=== PATIENT | female | born 1990 | race Caucasian/White ===

== ENCOUNTER 2024-11-25 07:52 | Inpatient (IN) ==
--- NOTE | 2024-11-25 08:50 | History & Physical Report ---
Date of Service November 25, 2024 Assessment & Plan (1) Encounter for induction of labor: (2) Hyperthyroidism affecting : (3) SHARLENE positive: Plan This is a 34 y/o currently at 40w 2d with an JOLEEN 11/23/24 as determined by LMP who is here for induction of labor. Her was complicated by hyperthyroidism and SHARLENE+. Dyer bulb 35cc sterile water - placed 11/24/24 Pitocin ordered AROM when indicated Continue FHT monitoring, category 1 Epidural if/when needed CBC pending IV fluids Admission and Anticipated Discharge Date Admission Date: November 25, 2024 History of Present Illness Chief Complaint: induction of labor Primary Care Provider: NO PCP Sharlene Zepeda is a 34 y/o F currently at 40w 2d with an EDD11/23/24 as determined by LMP who is here for induction of labor. Her was complicated by hyperthyroidism and SHARLENE+. (+) contractions; (+) movement; (-) fluid loss; (-) bloody show External FHT and external uterine monitors used; Category 1 tracing; moderate variability. Had had regular appointments with OB. OB Labs: Blood Type AB Positive 04/24/24 Antibody Screen NEGATIVE 04/24/24 Hgb 11.7 g/dl (12.0-16.0) L 09/01/24 Hct 34.0 % (37.0-47.0) L 09/01/24 MCV 87.6 fL (80.0-100.0) 04/24/24 Plt Count 292 K/uL (130-400) 04/24/24 Rubella IgG Antibody Immune (Immune) 04/24/24 Treponema pallidum Ab Negative (Negative) 09/01/24 Hep Bs Antigen Negative (Negative) 04/24/24 Hepatitis C Antibody Negative (Negative) 04/24/24 HIV 1&2 Ab/P24 Ag 4thGn Negative (Negative) 04/24/24 Glucose 1 Hr 50 gm 143 mg/dl (70-130) H 09/01/24 Maternal Serum AFP 43.4 ng/mL 06/08/24 OB Optional Labs: Chlamydia trachomatis RNA Not Detected (NotDetected) 04/24/24 Neisseria gonorrhoeae RNA Not Detected (NotDetected) 04/24/24 Thyroid Stimulating Hormone (TSH) 0.206 uIu/ml (0.300-4.500) L 09/17/24 Alpha Fetoprotein Triple Screen SEE NOTE 06/08/24 cfdna-low risk--mln Horizon 14-negative--mln afp neg--akh Allergies Allergy/AdvReac Type Severity Reaction Status Date / Time No Known Allergies Allergy narcs: N/V Verified 11/25/24 08:20 sleepiness, Steroids: hyperactivity Home Medications Medication Instructions Recorded Confirmed Type 21-iron fu-folic acid 1 tab PO DAILY 10/31/23 11/25/24 History [ Complete] levothyroxine 50 mcg tablet 50 mcg PO DAILY #90 tabs 09/21/24 11/25/24 Rx Patient History Medical History (Updated 11/25/24 @ 08:59 by Dodie Stone DO) Hypothyroidism SAB (spontaneous ) Positive SHARLENE (antinuclear antibody) Abnormal Pap smear of cervix 2015 ASCUS, HPV negative Hyperthyroidism History of chicken pox Surgical History H/O blepharoplasty S/P MCL repair S/P ACL repair H/O wisdom tooth extraction Family History Grandfather (Maternal) Prostate cancer Denies family history of Ovarian cancer Breast cancer Colorectal cancer Social History Smoking Status: Never smoker Do You Dip or Chew Tobacco: No; Hx Alcohol Use: No Hx Substance Use: No Preferred Language: Georgian Communication Ability: Effective 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 current occupational status: employed current occupation: Warehouse Inventory Clerk- [employer] Feels Safe at Home: Yes Safety Concerns: Feels Safe At This Time Review of Systems Denies fever, chills, sweats Denies shortness of breath, difficulty breathing, chest pain, palpitations, chest pressure. Denies breast pain. Denies dysuria. Denies headache or changes in vision. Physical Exam Physical Exam: General: Alert, oriented. No acute distress. Cardiac: Regular rate and rhythm, no murmurs/rubs/gallops. Respiratory: Clear to auscultation bilaterally a/p, no wheezes/rales/rhonchi. No increased work of breathing. Symmetrical chest rise. No respiratory distress. Abdomen: soft, gravid, normal to inspectiion Pelvic: Dilation 3 cm; Effacement 50; Station -[address] Wynn Lower Extremities: No lower extremity edema or swelling. No deep calf pain. Constitutional: WD/WN, vitals as above Genitourinary: OB Exam Abdomen: + vertex, + estimated weight (7-8 pounds) and + irregular contractions Manual OB Exam: + cervical dilation 3 cm and + cervical effacement OB Exam Monitor Tracing: + external FHT monitor used, + external uterine monitor used, + category I and + normal FHT variability Dyer balloon not delivered Results & Data Vital Signs (Past 12 Hours) Vital Signs Pulse BP 11/25/24 08:01 78 116/79 Supervising Physician Co-Signing Physician Notes Resident Physician Supervision Note: I interviewed and examined the patient. Discussed with Dr. Stone and agree with findings and plan as documented in the note. Any exceptions or clarifications are listed here: [None] Documented By: Wandy Singh MD, FACOG (2) Hyperthyroidism affecting Trimester: second trimester Qualified Code(s): O99.282 - Endocrine, nutritional and metabolic diseases complicating , second trimester; E05.90 - Thyrotoxicosis, unspecified without thyrotoxic crisis or storm
[2024-11-25] MEDS ORDERED: OXYTOCIN 30 UNITS/NSS 30 UNITS/500 ML BAG IV PRN (09:18)
[2024-11-25] MEDS ORDERED: LIDOCAINE 1% LOCAL 20 ML VIAL INFIL PRN (09:18)
[2024-11-25 09:45] LABS: Hematocrit (blood only) 38.9 % (37.0-47.0); Hemoglobin 13.9 g/dl (12.0-16.0); Mean Corpuscular Hemoglobin 32.9 pg (25.0-34.0); Mean Corpuscular Volume 92.0 fL (80.0-100.0); Platelet Count 203 K/uL (130-400); RDW Standard Deviation 44.3 fL (36.4-46.3); Red Blood Count 4.23 M/uL (4.20-5.40); White Blood Count 14.46 K/ul (4.8-10.8)
[2024-11-25] MEDS: LACTATED RINGER'S 1,000 ML IV PRN (10:02)
[2024-11-25] MEDS: OXYTOCIN 30 UNITS/NSS 30 UNITS/500 ML BAG IV PRN (10:05)
--- NOTE | 2024-11-25 15:42 | Labor Progress Brief Note ---
Date of Service November 25, 2024 Subjective tolerating contractions Assessment & Plan (1) Encounter for induction of labor: Plan will get epidural and then plan arom. fetus category one. Admission and Anticipated Discharge Date Admission Date: November 25, 2024 Physical Exam Physical Exam: gentle tug on roberts and removed cx--3-4/80/-2 toco--q2-4min, pit at 5 efm--120s with mod variability, accels to 150s, no decels Results & Data Vital Signs (Past 12 Hours) Vital Signs Temp Pulse Resp BP 11/25/24 15:09 80 11/25/24 15:09 125/79 11/25/24 14:03 66 11/25/24 14:03 119/75 11/25/24 13:06 65 11/25/24 13:06 114/68 11/25/24 12:04 68 11/25/24 12:04 107/64 11/25/24 11:05 71 11/25/24 11:05 122/78 11/25/24 10:05 73 11/25/24 10:05 112/72 11/25/24 08:25 78 18 116/79 11/25/24 08:01 78 116/79 11/25/24 08:00 18 11/25/24 08:00 36.7 C 18 Coding Level of Care Code None Diagnoses Encounter for induction of labor Z34.90
--- NOTE | 2024-11-25 15:56 | Anesthesiology Consultation ---
Date of Service November 25, 2024 Assessment & Plan ASA ASA2 Proposed Anesthesia Anesthesia Type: Spinal Risk / Benefits Reviewed With: PT / POA / Parent / Guardian, Accepts Plan and Informed Consent Obtained History Height/Weight Height: 5 ft 2 in Weight: 71.214 kg Allergies Allergy/AdvReac Type Severity Reaction Status Date / Time No Known Allergies Allergy narcs: N/V Verified 11/25/24 08:20 sleepiness, Steroids: hyperactivity Medications Home Medications Medication Instructions Recorded Confirmed Last Taken 21-iron fu-folic acid 1 tab PO DAILY 10/31/23 11/25/24 11/24/24 21:00 [ Complete] levothyroxine 50 mcg tablet 50 mcg PO DAILY #90 tabs 09/21/24 11/25/24 11/25/24 06:30 Active Medications Generic Name Dose Route Start Last Admin Trade Name Freq PRN Reason Stop Dose Admin Lactated Ringer's 1,000 mls @ 125 mls/hr 11/25/24 09:18 11/25/24 15:50 Lr IV 11/27/24 09:17 999 mls/hr .Q8H PRN Administration L&D Protocol Protocol Oxytocin 30 units in 500 mls @ 20 mls/hr 11/25/24 09:27 11/25/24 14:35 Pitocin 30 Units/Nss IV 11/27/24 09:26 1.2 units/hr .Q24H PRN 20 mls/hr Labor Induction/Augmentation Titration Protocol 1.2 UNITS/HR NPO Date Last Intake of Fluids: 11/25/24 Time Last Intake of Fluids: 00:00 Past Medical History Medical History Hypothyroidism SAB (spontaneous ) Positive SHARLENE (antinuclear antibody) Abnormal Pap smear of cervix 2015 ASCUS, HPV negative Hyperthyroidism History of chicken pox Exercise / Class Metabolic Activity II 4-5 Yardwork/Stairs/Walk up hill Past Family History Family History Grandfather (Maternal) Prostate cancer Denies family history of Ovarian cancer Breast cancer Colorectal cancer Past Surgical History Surgical History H/O blepharoplasty S/P MCL repair S/P ACL repair H/O wisdom tooth extraction Past Anesthesia History No Hx of Anesthesia Complications and No Family Hx of Anesthesia Complications History of PONV No Hx of PONV and No Hx of Motion Sickness Social History Smoking Status: Never smoker Do You Dip or Chew Tobacco: No Hx Alcohol Use: No Hx Substance Use: No substance use type: does not use Review of Systems denies fever/cough/ colds/ chest pain/ SOB/ COLLINS denies COLLINS Physical Exam Vital Signs Last Vital Signs Temp 36.7 C 11/25/24 08:00 Pulse 80 11/25/24 15:09 Resp 18 11/25/24 08:25 BP 125/79 11/25/24 15:09 ENMT Mouth: no TMJ abnormality and no dentition abnormality Thyromental Distance: > or= 3.5 Finger Breadths Mallampati Class: II Neck neck extension not limited Respiratory normal respiratory effort; no respiratory distress Auscultation: lungs clear to auscultation bilaterally Cardiovascular Rate/Rhythm: regular rate and regular rhythm Neurologic moves all extremities Psychiatric Orientation: alert and oriented x 3 Testing Laboratory Results 11/25/24 09:27
[2024-11-25] MEDS ORDERED: LIDOCAINE 2% MPF LOCAL 5 ML VIAL EPI PRN (15:58)
[2024-11-25] MEDS ORDERED: BUPIVACAINE 0.25% PF 30 ML VIAL EPI PRN (15:58)
[2024-11-25] MEDS ORDERED: fentANYL 2 MCG/ML BUPIVacaine 0.125%-NSS 100ML BAG EPI PRN (15:58)
[2024-11-25] MEDS ORDERED: ROPIVACAINE 0.5% PF 5 MG/ML 20 ML VIAL EPI PRN (15:58)
[2024-11-25] MEDS ORDERED: diphenhydrAMINE 50 MG/ML VIAL IV PRN (15:58)
[2024-11-25] MEDS ORDERED: ONDANSETRON INJ 2 MG/ML 2 ML VIAL IV PRN (15:58)
[2024-11-25] MEDS ORDERED: NALBUPHINE HCL INJ 10 MG/ML AMP IV PRN (15:58)
[2024-11-25] MEDS ORDERED: NALOXONE HCL 0.4 MG/1 ML VIAL/CARP IV PRN (15:58)
[2024-11-25] MEDS ORDERED: SODIUM CHLORIDE 0.9% PF INJ 10 ML VIAL EPI PRN (15:58)
[2024-11-25] MEDS ORDERED: NALOXONE HCL 1 MG in SODIUM CHLORIDE 0.9% 1,000 ML IV PRN (15:58)
[2024-11-25] MEDS: LIDOCAINE 2%/EPINEPHRINE 1:200,000 20 ML PF ONE (16:25)
[2024-11-25] MEDS: fentANYL 2 MCG/ML BUPIVacaine 0.125%-NSS 100ML BAG ONE (16:37)
[2024-11-25] MEDS: BUPIVACAINE 0.25% PF 30 ML VIAL ONE (17:02)
[2024-11-25] MEDS: SODIUM CHLORIDE 0.9% PF INJ 10 ML VIAL ONE (17:02)
[2024-11-25] MEDS: LIDOCAINE 2%/EPINEPHRINE 1:200,000 20 ML PF EPI STA (17:03)
[2024-11-25] MEDS: BUPIVACAINE 0.25% PF 30 ML VIAL EPI STA (17:03)
[2024-11-25] MEDS: SODIUM CHLORIDE 0.9% PF INJ 10 ML VIAL EPI STA (17:03)
--- NOTE | 2024-11-25 20:04 | Labor Progress Brief Note ---
Date of Service November 25, 2024 Subjective comfortable Assessment & Plan (1) Encounter for induction of labor: Plan iupc placed, evaluate for adequate contractions. fetus category one Admission and Anticipated Discharge Date Admission Date: November 25, 2024 Physical Exam Physical Exam: cx--5/100/-2 iupc placed toco--q2-4, pit at 20 efm--140s with mod variability, accels to 160s, no decels Results & Data Vital Signs (Past 12 Hours) Vital Signs Temp Pulse Resp BP Pulse Ox Pulse Ox O2 Del Method 11/25/24 20:00 97 11/25/24 20:00 74 11/25/24 19:55 96 11/25/24 19:55 76 11/25/24 19:50 95 11/25/24 19:50 79 11/25/24 19:45 97 11/25/24 19:45 74 11/25/24 19:43 75 11/25/24 19:43 104/64 11/25/24 19:40 98 11/25/24 19:40 75 11/25/24 19:35 97 11/25/24 19:35 71 11/25/24 19:30 98 11/25/24 19:30 81 11/25/24 19:27 74 11/25/24 19:27 112/77 11/25/24 19:25 98 11/25/24 19:25 75 11/25/24 19:20 97 11/25/24 19:20 78 11/25/24 19:15 97 11/25/24 19:15 79 11/25/24 19:13 97 11/25/24 19:12 74 11/25/24 19:12 112/77 11/25/24 19:10 97 11/25/24 19:10 69 11/25/24 19:05 Room Air 11/25/24 19:05 37.0 C 18 Room Air 11/25/24 19:05 18 11/25/24 19:05 37.0 C 18 11/25/24 19:05 96 11/25/24 19:05 75 11/25/24 19:00 98 11/25/24 19:00 79 11/25/24 18:55 98 11/25/24 18:55 75 11/25/24 18:50 98 11/25/24 18:50 76 11/25/24 18:45 98 11/25/24 18:45 74 11/25/24 18:43 75 11/25/24 18:43 115/73 11/25/24 18:40 97 11/25/24 18:40 73 11/25/24 18:35 97 11/25/24 18:35 77 11/25/24 18:30 98 11/25/24 18:30 76 11/25/24 18:28 77 11/25/24 18:28 117/70 11/25/24 18:25 36.9 C 11/25/24 18:25 99 11/25/24 18:25 78 11/25/24 18:20 99 11/25/24 18:20 74 11/25/24 18:15 98 11/25/24 18:15 81 11/25/24 18:12 81 11/25/24 18:12 114/64 11/25/24 18:10 97 11/25/24 18:10 81 11/25/24 18:05 98 11/25/24 18:05 79 11/25/24 18:00 99 11/25/24 18:00 86 11/25/24 17:57 71 11/25/24 17:57 107/68 11/25/24 17:55 98 11/25/24 17:55 79 11/25/24 17:50 99 11/25/24 17:50 79 11/25/24 17:45 98 11/25/24 17:45 75 11/25/24 17:42 74 11/25/24 17:42 108/74 11/25/24 17:40 99 11/25/24 17:40 78 11/25/24 17:35 98 11/25/24 17:35 76 11/25/24 17:30 18 11/25/24 17:30 36.9 C 18 11/25/24 17:30 99 11/25/24 17:30 79 11/25/24 17:29 77 11/25/24 17:29 116/85 11/25/24 17:25 99 11/25/24 17:25 81 11/25/24 17:20 96 11/25/24 17:20 87 11/25/24 17:15 98 11/25/24 17:15 73 11/25/24 17:12 85 11/25/24 17:12 104/61 11/25/24 17:10 99 11/25/24 17:10 79 11/25/24 17:05 99 11/25/24 17:05 80 11/25/24 17:00 98 11/25/24 17:00 83 11/25/24 16:57 75 11/25/24 16:57 110/64 11/25/24 16:55 98 11/25/24 16:55 77 11/25/24 16:50 98 11/25/24 16:50 82 11/25/24 16:45 98 11/25/24 16:45 99 H 11/25/24 16:41 82 11/25/24 16:41 110/66 11/25/24 16:40 98 11/25/24 16:40 82 11/25/24 16:38 81 11/25/24 16:38 109/62 11/25/24 16:36 84 11/25/24 16:36 115/67 11/25/24 16:35 98 11/25/24 16:35 93 H 11/25/24 16:32 84 11/25/24 16:32 107/57 L 11/25/24 16:30 98 11/25/24 16:30 85 11/25/24 16:29 82 11/25/24 16:29 118/57 L 11/25/24 16:26 71 11/25/24 16:26 117/78 11/25/24 16:25 98 11/25/24 16:25 70 11/25/24 16:20 99 11/25/24 16:20 75 11/25/24 16:15 100 11/25/24 16:15 79 11/25/24 16:10 99 11/25/24 16:10 79 11/25/24 16:04 18 11/25/24 16:04 37.2 C 18 11/25/24 15:09 80 11/25/24 15:09 125/79 11/25/24 14:03 66 11/25/24 14:03 119/75 11/25/24 13:06 65 11/25/24 13:06 114/68 11/25/24 12:04 68 11/25/24 12:04 107/64 11/25/24 11:05 71 11/25/24 11:05 122/78 11/25/24 10:05 73 11/25/24 10:05 112/72 11/25/24 08:25 78 18 116/79 O2 Del Method 11/25/24 20:00 11/25/24 20:00 11/25/24 19:55 11/25/24 19:55 11/25/24 19:50 11/25/24 19:50 11/25/24 19:45 11/25/24 19:45 11/25/24 19:43 11/25/24 19:43 11/25/24 19:40 11/25/24 19:40 11/25/24 19:35 11/25/24 19:35 11/25/24 19:30 11/25/24 19:30 11/25/24 19:27 11/25/24 19:27 11/25/24 19:25 11/25/24 19:25 11/25/24 19:20 11/25/24 19:20 11/25/24 19:15 11/25/24 19:15 11/25/24 19:13 Room Air 11/25/24 19:12 11/25/24 19:12 11/25/24 19:10 11/25/24 19:10 11/25/24 19:05 11/25/24 19:05 11/25/24 19:05 11/25/24 19:05 11/25/24 19:05 11/25/24 19:05 11/25/24 19:00 11/25/24 19:00 11/25/24 18:55 11/25/24 18:55 11/25/24 18:50 11/25/24 18:50 11/25/24 18:45 11/25/24 18:45 11/25/24 18:43 11/25/24 18:43 11/25/24 18:40 11/25/24 18:40 11/25/24 18:35 11/25/24 18:35 11/25/24 18:30 11/25/24 18:30 11/25/24 18:28 11/25/24 18:28 11/25/24 18:25 11/25/24 18:25 11/25/24 18:25 11/25/24 18:20 11/25/24 18:20 11/25/24 18:15 11/25/24 18:15 11/25/24 18:12 11/25/24 18:12 11/25/24 18:10 11/25/24 18:10 11/25/24 18:05 11/25/24 18:05 11/25/24 18:00 11/25/24 18:00 11/25/24 17:57 11/25/24 17:57 11/25/24 17:55 11/25/24 17:55 11/25/24 17:50 11/25/24 17:50 11/25/24 17:45 11/25/24 17:45 11/25/24 17:42 11/25/24 17:42 11/25/24 17:40 11/25/24 17:40 11/25/24 17:35 11/25/24 17:35 11/25/24 17:30 11/25/24 17:30 11/25/24 17:30 11/25/24 17:30 11/25/24 17:29 11/25/24 17:29 11/25/24 17:25 11/25/24 17:25 11/25/24 17:20 11/25/24 17:20 11/25/24 17:15 11/25/24 17:15 11/25/24 17:12 11/25/24 17:12 11/25/24 17:10 11/25/24 17:10 11/25/24 17:05 11/25/24 17:05 11/25/24 17:00 11/25/24 17:00 11/25/24 16:57 11/25/24 16:57 11/25/24 16:55 11/25/24 16:55 11/25/24 16:50 11/25/24 16:50 11/25/24 16:45 11/25/24 16:45 11/25/24 16:41 11/25/24 16:41 11/25/24 16:40 11/25/24 16:40 11/25/24 16:38 11/25/24 16:38 11/25/24 16:36 11/25/24 16:36 11/25/24 16:35 11/25/24 16:35 11/25/24 16:32 11/25/24 16:32 11/25/24 16:30 11/25/24 16:30 11/25/24 16:29 11/25/24 16:29 11/25/24 16:26 11/25/24 16:26 11/25/24 16:25 11/25/24 16:25 11/25/24 16:20 11/25/24 16:20 11/25/24 16:15 11/25/24 16:15 11/25/24 16:10 11/25/24 16:10 11/25/24 16:04 11/25/24 16:04 11/25/24 15:09 11/25/24 15:09 11/25/24 14:03 11/25/24 14:03 11/25/24 13:06 11/25/24 13:06 11/25/24 12:04 11/25/24 12:04 11/25/24 11:05 11/25/24 11:05 11/25/24 10:05 11/25/24 10:05 11/25/24 08:25 Coding Level of Care Code None Diagnoses Encounter for induction of labor Z34.90
--- NOTE | 2024-11-25 23:28 | Labor Progress Brief Note ---
Date of Service November 25, 2024 Subjective notes lots of pressure with contractions. Assessment & Plan (1) Encounter for induction of labor: Plan excellent progress, fetus category one. wait for lip to reduce and then can begin second stage. Admission and Anticipated Discharge Date Admission Date: November 25, 2024 Physical Exam Physical Exam: cx--ant lip/0 toco--q1-2min, pit at 26 efm--150s with mod variability, accels presents, scalp stim to 160s Results & Data Vital Signs (Past 12 Hours) Vital Signs Temp Pulse Resp BP Pulse Ox Pulse Ox O2 Del Method 11/25/24 23:20 99 11/25/24 23:20 81 11/25/24 23:15 98 11/25/24 23:15 82 11/25/24 23:12 83 11/25/24 23:12 122/71 11/25/24 23:10 100 11/25/24 23:10 85 11/25/24 23:05 99 11/25/24 23:05 79 11/25/24 23:00 18 11/25/24 23:00 18 11/25/24 23:00 99 11/25/24 23:00 79 11/25/24 22:58 93 11/25/24 22:58 80 11/25/24 22:57 84 11/25/24 22:57 120/67 11/25/24 22:55 99 11/25/24 22:55 90 11/25/24 22:50 98 11/25/24 22:50 89 11/25/24 22:45 98 11/25/24 22:45 88 11/25/24 22:43 96 H 11/25/24 22:43 115/76 11/25/24 22:43 90 11/25/24 22:43 91 H 11/25/24 22:40 99 11/25/24 22:40 88 11/25/24 22:35 99 11/25/24 22:35 81 11/25/24 22:30 99 11/25/24 22:30 80 11/25/24 22:27 71 11/25/24 22:27 102/57 L 11/25/24 22:25 99 11/25/24 22:25 70 11/25/24 22:20 96 11/25/24 22:20 78 11/25/24 22:15 96 11/25/24 22:15 79 11/25/24 22:12 73 11/25/24 22:12 103/56 L 11/25/24 22:10 98 11/25/24 22:10 78 11/25/24 22:05 95 11/25/24 22:05 77 11/25/24 22:00 18 11/25/24 22:00 18 11/25/24 22:00 95 11/25/24 22:00 78 11/25/24 21:57 78 11/25/24 21:57 98/56 L 11/25/24 21:55 95 11/25/24 21:55 77 11/25/24 21:50 95 11/25/24 21:50 78 11/25/24 21:45 96 11/25/24 21:45 78 11/25/24 21:42 78 11/25/24 21:42 101/62 11/25/24 21:40 96 11/25/24 21:40 74 11/25/24 21:38 93 11/25/24 21:38 79 11/25/24 21:35 98 11/25/24 21:35 92 H 11/25/24 21:30 100 11/25/24 21:30 75 11/25/24 21:27 74 11/25/24 21:27 112/75 11/25/24 21:25 98 11/25/24 21:25 72 11/25/24 21:20 98 11/25/24 21:20 81 11/25/24 21:15 36.9 C 11/25/24 21:15 97 11/25/24 21:15 82 11/25/24 21:12 78 11/25/24 21:12 110/75 11/25/24 21:10 98 11/25/24 21:10 79 11/25/24 21:05 96 11/25/24 21:05 96 H 11/25/24 21:00 18 11/25/24 21:00 18 11/25/24 21:00 93 11/25/24 21:00 82 11/25/24 20:57 73 11/25/24 20:57 118/74 11/25/24 20:55 97 11/25/24 20:55 74 11/25/24 20:50 96 11/25/24 20:50 73 11/25/24 20:45 98 11/25/24 20:45 73 11/25/24 20:42 83 11/25/24 20:42 119/74 11/25/24 20:40 98 11/25/24 20:40 74 11/25/24 20:35 98 11/25/24 20:35 84 11/25/24 20:30 98 11/25/24 20:30 75 11/25/24 20:27 74 11/25/24 20:27 112/70 11/25/24 20:25 97 11/25/24 20:25 71 11/25/24 20:20 97 11/25/24 20:20 71 11/25/24 20:15 98 11/25/24 20:15 85 11/25/24 20:12 72 11/25/24 20:12 121/72 11/25/24 20:10 97 11/25/24 20:10 74 11/25/24 20:05 97 11/25/24 20:05 72 11/25/24 20:00 18 11/25/24 20:00 18 11/25/24 20:00 97 11/25/24 20:00 74 11/25/24 19:55 96 11/25/24 19:55 76 11/25/24 19:50 95 11/25/24 19:50 79 11/25/24 19:45 97 11/25/24 19:45 74 11/25/24 19:43 75 11/25/24 19:43 104/64 11/25/24 19:40 98 11/25/24 19:40 75 11/25/24 19:35 97 11/25/24 19:35 71 11/25/24 19:30 98 11/25/24 19:30 81 11/25/24 19:27 74 11/25/24 19:27 112/77 11/25/24 19:25 98 11/25/24 19:25 75 11/25/24 19:20 97 11/25/24 19:20 78 11/25/24 19:15 97 11/25/24 19:15 79 11/25/24 19:13 97 11/25/24 19:12 74 11/25/24 19:12 112/77 11/25/24 19:10 97 11/25/24 19:10 69 11/25/24 19:05 Room Air 11/25/24 19:05 37.0 C 18 Room Air 11/25/24 19:05 18 11/25/24 19:05 37.0 C 18 11/25/24 19:05 96 11/25/24 19:05 75 11/25/24 19:00 98 11/25/24 19:00 79 11/25/24 18:55 98 11/25/24 18:55 75 11/25/24 18:50 98 11/25/24 18:50 76 11/25/24 18:45 98 11/25/24 18:45 74 11/25/24 18:43 75 11/25/24 18:43 115/73 11/25/24 18:40 97 11/25/24 18:40 73 11/25/24 18:35 97 11/25/24 18:35 77 11/25/24 18:30 98 11/25/24 18:30 76 11/25/24 18:28 77 11/25/24 18:28 117/70 11/25/24 18:25 36.9 C 11/25/24 18:25 99 11/25/24 18:25 78 11/25/24 18:20 99 11/25/24 18:20 74 11/25/24 18:15 98 11/25/24 18:15 81 11/25/24 18:12 81 11/25/24 18:12 114/64 11/25/24 18:10 97 11/25/24 18:10 81 11/25/24 18:05 98 11/25/24 18:05 79 11/25/24 18:00 99 11/25/24 18:00 86 11/25/24 17:57 71 11/25/24 17:57 107/68 11/25/24 17:55 98 11/25/24 17:55 79 11/25/24 17:50 99 11/25/24 17:50 79 11/25/24 17:45 98 11/25/24 17:45 75 11/25/24 17:42 74 11/25/24 17:42 108/74 11/25/24 17:40 99 11/25/24 17:40 78 11/25/24 17:35 98 11/25/24 17:35 76 11/25/24 17:30 18 11/25/24 17:30 36.9 C 18 11/25/24 17:30 99 11/25/24 17:30 79 11/25/24 17:29 77 11/25/24 17:29 116/85 11/25/24 17:25 99 11/25/24 17:25 81 11/25/24 17:20 96 11/25/24 17:20 87 11/25/24 17:15 98 11/25/24 17:15 73 11/25/24 17:12 85 11/25/24 17:12 104/61 11/25/24 17:10 99 11/25/24 17:10 79 11/25/24 17:05 99 11/25/24 17:05 80 11/25/24 17:00 98 11/25/24 17:00 83 11/25/24 16:57 75 11/25/24 16:57 110/64 11/25/24 16:55 98 11/25/24 16:55 77 11/25/24 16:50 98 11/25/24 16:50 82 11/25/24 16:45 98 11/25/24 16:45 99 H 11/25/24 16:41 82 11/25/24 16:41 110/66 11/25/24 16:40 98 11/25/24 16:40 82 11/25/24 16:38 81 11/25/24 16:38 109/62 11/25/24 16:36 84 11/25/24 16:36 115/67 11/25/24 16:35 98 11/25/24 16:35 93 H 11/25/24 16:32 84 11/25/24 16:32 107/57 L 11/25/24 16:30 98 11/25/24 16:30 85 11/25/24 16:29 82 11/25/24 16:29 118/57 L 11/25/24 16:26 71 11/25/24 16:26 117/78 11/25/24 16:25 98 11/25/24 16:25 70 11/25/24 16:20 99 11/25/24 16:20 75 11/25/24 16:15 100 11/25/24 16:15 79 11/25/24 16:10 99 11/25/24 16:10 79 11/25/24 16:04 18 11/25/24 16:04 37.2 C 18 11/25/24 15:09 80 11/25/24 15:09 125/79 11/25/24 14:03 66 11/25/24 14:03 119/75 11/25/24 13:06 65 11/25/24 13:06 114/68 11/25/24 12:04 68 11/25/24 12:04 107/64 O2 Del Method 11/25/24 23:20 11/25/24 23:20 11/25/24 23:15 11/25/24 23:15 11/25/24 23:12 11/25/24 23:12 11/25/24 23:10 11/25/24 23:10 11/25/24 23:05 11/25/24 23:05 11/25/24 23:00 11/25/24 23:00 11/25/24 23:00 11/25/24 23:00 11/25/24 22:58 11/25/24 22:58 11/25/24 22:57 11/25/24 22:57 11/25/24 22:55 11/25/24 22:55 11/25/24 22:50 11/25/24 22:50 11/25/24 22:45 11/25/24 22:45 11/25/24 22:43 11/25/24 22:43 11/25/24 22:43 11/25/24 22:43 11/25/24 22:40 11/25/24 22:40 11/25/24 22:35 11/25/24 22:35 11/25/24 22:30 11/25/24 22:30 11/25/24 22:27 11/25/24 22:27 11/25/24 22:25 11/25/24 22:25 11/25/24 22:20 11/25/24 22:20 11/25/24 22:15 11/25/24 22:15 11/25/24 22:12 11/25/24 22:12 11/25/24 22:10 11/25/24 22:10 11/25/24 22:05 11/25/24 22:05 11/25/24 22:00 11/25/24 22:00 11/25/24 22:00 11/25/24 22:00 11/25/24 21:57 11/25/24 21:57 11/25/24 21:55 11/25/24 21:55 11/25/24 21:50 11/25/24 21:50 11/25/24 21:45 11/25/24 21:45 11/25/24 21:42 11/25/24 21:42 11/25/24 21:40 11/25/24 21:40 11/25/24 21:38 11/25/24 21:38 11/25/24 21:35 11/25/24 21:35 11/25/24 21:30 11/25/24 21:30 11/25/24 21:27 11/25/24 21:27 11/25/24 21:25 11/25/24 21:25 11/25/24 21:20 11/25/24 21:20 11/25/24 21:15 11/25/24 21:15 11/25/24 21:15 11/25/24 21:12 11/25/24 21:12 11/25/24 21:10 11/25/24 21:10 11/25/24 21:05 11/25/24 21:05 11/25/24 21:00 11/25/24 21:00 11/25/24 21:00 11/25/24 21:00 11/25/24 20:57 11/25/24 20:57 11/25/24 20:55 11/25/24 20:55 11/25/24 20:50 11/25/24 20:50 11/25/24 20:45 11/25/24 20:45 11/25/24 20:42 11/25/24 20:42 11/25/24 20:40 11/25/24 20:40 11/25/24 20:35 11/25/24 20:35 11/25/24 20:30 11/25/24 20:30 11/25/24 20:27 11/25/24 20:27 11/25/24 20:25 11/25/24 20:25 11/25/24 20:20 11/25/24 20:20 11/25/24 20:15 11/25/24 20:15 11/25/24 20:12 11/25/24 20:12 11/25/24 20:10 11/25/24 20:10 11/25/24 20:05 11/25/24 20:05 11/25/24 20:00 11/25/24 20:00 11/25/24 20:00 11/25/24 20:00 11/25/24 19:55 11/25/24 19:55 11/25/24 19:50 11/25/24 19:50 11/25/24 19:45 11/25/24 19:45 11/25/24 19:43 11/25/24 19:43 11/25/24 19:40 11/25/24 19:40 11/25/24 19:35 11/25/24 19:35 11/25/24 19:30 11/25/24 19:30 11/25/24 19:27 11/25/24 19:27 11/25/24 19:25 11/25/24 19:25 11/25/24 19:20 11/25/24 19:20 11/25/24 19:15 11/25/24 19:15 11/25/24 19:13 Room Air 11/25/24 19:12 11/25/24 19:12 11/25/24 19:10 11/25/24 19:10 11/25/24 19:05 11/25/24 19:05 11/25/24 19:05 11/25/24 19:05 11/25/24 19:05 11/25/24 19:05 11/25/24 19:00 11/25/24 19:00 11/25/24 18:55 11/25/24 18:55 11/25/24 18:50 11/25/24 18:50 11/25/24 18:45 11/25/24 18:45 11/25/24 18:43 11/25/24 18:43 11/25/24 18:40 11/25/24 18:40 11/25/24 18:35 11/25/24 18:35 11/25/24 18:30 11/25/24 18:30 11/25/24 18:28 11/25/24 18:28 11/25/24 18:25 11/25/24 18:25 11/25/24 18:25 11/25/24 18:20 11/25/24 18:20 11/25/24 18:15 11/25/24 18:15 11/25/24 18:12 11/25/24 18:12 11/25/24 18:10 11/25/24 18:10 11/25/24 18:05 11/25/24 18:05 11/25/24 18:00 11/25/24 18:00 11/25/24 17:57 11/25/24 17:57 11/25/24 17:55 11/25/24 17:55 11/25/24 17:50 11/25/24 17:50 11/25/24 17:45 11/25/24 17:45 11/25/24 17:42 11/25/24 17:42 11/25/24 17:40 11/25/24 17:40 11/25/24 17:35 11/25/24 17:35 11/25/24 17:30 11/25/24 17:30 11/25/24 17:30 11/25/24 17:30 11/25/24 17:29 11/25/24 17:29 11/25/24 17:25 11/25/24 17:25 11/25/24 17:20 11/25/24 17:20 11/25/24 17:15 11/25/24 17:15 11/25/24 17:12 11/25/24 17:12 11/25/24 17:10 11/25/24 17:10 11/25/24 17:05 11/25/24 17:05 11/25/24 17:00 11/25/24 17:00 11/25/24 16:57 11/25/24 16:57 11/25/24 16:55 11/25/24 16:55 11/25/24 16:50 11/25/24 16:50 11/25/24 16:45 11/25/24 16:45 11/25/24 16:41 11/25/24 16:41 11/25/24 16:40 11/25/24 16:40 11/25/24 16:38 11/25/24 16:38 11/25/24 16:36 11/25/24 16:36 11/25/24 16:35 11/25/24 16:35 11/25/24 16:32 11/25/24 16:32 11/25/24 16:30 11/25/24 16:30 11/25/24 16:29 11/25/24 16:29 11/25/24 16:26 11/25/24 16:26 11/25/24 16:25 11/25/24 16:25 11/25/24 16:20 11/25/24 16:20 11/25/24 16:15 11/25/24 16:15 11/25/24 16:10 11/25/24 16:10 11/25/24 16:04 11/25/24 16:04 11/25/24 15:09 11/25/24 15:09 11/25/24 14:03 11/25/24 14:03 11/25/24 13:06 11/25/24 13:06 11/25/24 12:04 11/25/24 12:04 Coding Level of Care Code None Diagnoses Encounter for induction of labor Z34.90
[2024-11-26] MEDS: fentANYL 2 MCG/ML BUPIVacaine 0.125%-NSS 100ML BAG ONE (00:27)
[2024-11-26] MEDS: BUPIVACAINE 0.25% PF 30 ML VIAL ONE (00:28)
[2024-11-26] MEDS: LIDOCAINE 2%/EPINEPHRINE 1:200,000 20 ML PF ONE (00:28)
--- NOTE | 2024-11-26 00:38 | Anesthesia Procedure Note ---
Date of Service November 26, 2024 Anesthesia Epidural Re-Dose Vital Signs Temp Pulse Resp BP Pulse Ox O2 Del Method 37.2 C 76 18 105/72 100 Room Air 11/25/24 23:51 11/26/24 00:35 11/26/24 00:00 11/26/24 00:30 11/26/24 00:35 11/25/24 19:13 Notes Pain Intensity: 10 Dilatation (cm): 9.5 Effacement (%): 100 Called by nursing to evaluate epidural because the connector piece had detached. the nurse had covered exposed tubing with a tegaderm. the tubing was cut two inches by ma and cleaned with alcohol. the connector was reconnected and she was redosed.. The epidural was re-dosed with the following medications (all medications via epidural route) after negative aspiration of the epidural catheter for CSF/HEME. 2ml 2% lidocaine with epi, 2mL bupivicaine 0.25% and 100 mcg fetanyl via epidural After Epidural Re-Dose Mental Status: alert / awake / arousable Pain: improving with treatment Airway Patency, RR, SpO2: stable & adequate BP & HR: stable & adequate
--- NOTE | 2024-11-26 02:16 | Labor Progress Brief Note ---
Date of Service November 26, 2024 Subjective pushing with good effort for about 45 min Assessment & Plan (1) Encounter for induction of labor: Plan good effort, moving baby, fetus tachy but reassuring, anticipate . Admission and Anticipated Discharge Date Admission Date: November 25, 2024 Physical Exam Physical Exam: c/c/+3 toco--q1-2min, pit at 26 efm--170s with mod variability, variables with contractions, spon accels Results & Data Vital Signs (Past 12 Hours) Vital Signs Temp Pulse Resp BP Pulse Ox Pulse Ox O2 Del Method 11/26/24 02:12 97 11/26/24 02:12 121 H 11/26/24 02:12 93 H 117/55 L 11/26/24 02:06 83 98 11/26/24 02:01 121 H 96 11/26/24 01:57 92 H 126/58 L 11/26/24 01:56 116 H 96 11/26/24 01:51 90 98 11/26/24 01:47 87 88 L 11/26/24 01:46 83 98 11/26/24 01:43 81 113/61 11/26/24 01:41 104 H 97 11/26/24 01:36 114 H 93 11/26/24 01:35 97 H 99 11/26/24 01:30 83 99 11/26/24 01:28 75 92/51 L 11/26/24 01:25 89 97 11/26/24 01:20 74 97 11/26/24 01:15 72 97 11/26/24 01:13 69 94/52 L 11/26/24 01:10 73 97 11/26/24 01:05 72 97 11/26/24 01:00 73 18 97 11/26/24 00:58 67 92/53 L 11/26/24 00:55 75 94 11/26/24 00:50 37.0 C 71 96 11/26/24 00:45 85 96 11/26/24 00:43 77 103/65 94 11/26/24 00:40 75 94 11/26/24 00:38 72 94 11/26/24 00:35 76 100 11/26/24 00:33 74 92 11/26/24 00:30 75 105/72 98 11/26/24 00:28 78 108/70 11/26/24 00:27 81 111/70 11/26/24 00:25 82 99 11/26/24 00:20 84 96 11/26/24 00:15 83 97 11/26/24 00:14 79 93 11/26/24 00:12 77 110/73 11/26/24 00:10 84 98 11/26/24 00:05 77 95 11/26/24 00:00 90 18 99 11/25/24 23:58 80 11/25/24 23:58 115/74 11/25/24 23:55 100 11/25/24 23:55 81 11/25/24 23:51 37.2 C 11/25/24 23:50 96 11/25/24 23:50 87 11/25/24 23:45 98 11/25/24 23:45 87 11/25/24 23:42 88 11/25/24 23:42 104/57 L 11/25/24 23:40 99 11/25/24 23:40 82 11/25/24 23:39 93 11/25/24 23:39 91 H 11/25/24 23:35 99 11/25/24 23:35 84 11/25/24 23:33 94 11/25/24 23:33 85 11/25/24 23:30 100 11/25/24 23:30 84 11/25/24 23:27 83 11/25/24 23:27 102/56 L 11/25/24 23:25 100 11/25/24 23:25 89 11/25/24 23:20 99 11/25/24 23:20 81 11/25/24 23:15 98 11/25/24 23:15 82 11/25/24 23:12 83 11/25/24 23:12 122/71 11/25/24 23:10 100 11/25/24 23:10 85 11/25/24 23:05 99 11/25/24 23:05 79 11/25/24 23:00 18 11/25/24 23:00 18 11/25/24 23:00 99 11/25/24 23:00 79 11/25/24 22:58 93 11/25/24 22:58 80 11/25/24 22:57 84 11/25/24 22:57 120/67 11/25/24 22:55 99 11/25/24 22:55 90 11/25/24 22:50 98 11/25/24 22:50 89 11/25/24 22:45 98 11/25/24 22:45 88 11/25/24 22:43 96 H 11/25/24 22:43 115/76 11/25/24 22:43 90 11/25/24 22:43 91 H 11/25/24 22:40 99 11/25/24 22:40 88 11/25/24 22:35 99 11/25/24 22:35 81 11/25/24 22:30 99 11/25/24 22:30 80 11/25/24 22:27 71 11/25/24 22:27 102/57 L 11/25/24 22:25 99 11/25/24 22:25 70 11/25/24 22:20 96 11/25/24 22:20 78 11/25/24 22:15 96 11/25/24 22:15 79 11/25/24 22:12 73 11/25/24 22:12 103/56 L 11/25/24 22:10 98 11/25/24 22:10 78 11/25/24 22:05 95 11/25/24 22:05 77 11/25/24 22:00 18 11/25/24 22:00 18 11/25/24 22:00 95 11/25/24 22:00 78 11/25/24 21:57 78 11/25/24 21:57 98/56 L 11/25/24 21:55 95 11/25/24 21:55 77 11/25/24 21:50 95 11/25/24 21:50 78 11/25/24 21:45 96 11/25/24 21:45 78 11/25/24 21:42 78 11/25/24 21:42 101/62 11/25/24 21:40 96 11/25/24 21:40 74 11/25/24 21:38 93 11/25/24 21:38 79 11/25/24 21:35 98 11/25/24 21:35 92 H 11/25/24 21:30 100 11/25/24 21:30 75 11/25/24 21:27 74 11/25/24 21:27 112/75 11/25/24 21:25 98 11/25/24 21:25 72 11/25/24 21:20 98 11/25/24 21:20 81 11/25/24 21:15 36.9 C 11/25/24 21:15 97 11/25/24 21:15 82 11/25/24 21:12 78 11/25/24 21:12 110/75 11/25/24 21:10 98 11/25/24 21:10 79 11/25/24 21:05 96 11/25/24 21:05 96 H 11/25/24 21:00 18 11/25/24 21:00 18 11/25/24 21:00 93 11/25/24 21:00 82 11/25/24 20:57 73 11/25/24 20:57 118/74 11/25/24 20:55 97 11/25/24 20:55 74 11/25/24 20:50 96 11/25/24 20:50 73 11/25/24 20:45 98 11/25/24 20:45 73 11/25/24 20:42 83 11/25/24 20:42 119/74 11/25/24 20:40 98 11/25/24 20:40 74 11/25/24 20:35 98 11/25/24 20:35 84 11/25/24 20:30 98 11/25/24 20:30 75 11/25/24 20:27 74 11/25/24 20:27 112/70 11/25/24 20:25 97 11/25/24 20:25 71 11/25/24 20:20 97 11/25/24 20:20 71 11/25/24 20:15 98 11/25/24 20:15 85 11/25/24 20:12 72 11/25/24 20:12 121/72 11/25/24 20:10 97 11/25/24 20:10 74 11/25/24 20:05 97 11/25/24 20:05 72 11/25/24 20:00 18 11/25/24 20:00 18 11/25/24 20:00 97 11/25/24 20:00 74 11/25/24 19:55 96 11/25/24 19:55 76 11/25/24 19:50 95 11/25/24 19:50 79 11/25/24 19:45 97 11/25/24 19:45 74 11/25/24 19:43 75 11/25/24 19:43 104/64 11/25/24 19:40 98 11/25/24 19:40 75 11/25/24 19:35 97 11/25/24 19:35 71 11/25/24 19:30 98 11/25/24 19:30 81 11/25/24 19:27 74 11/25/24 19:27 112/77 11/25/24 19:25 98 11/25/24 19:25 75 11/25/24 19:20 97 11/25/24 19:20 78 11/25/24 19:15 97 11/25/24 19:15 79 11/25/24 19:13 97 11/25/24 19:12 74 11/25/24 19:12 112/77 11/25/24 19:10 97 11/25/24 19:10 69 11/25/24 19:05 Room Air 11/25/24 19:05 37.0 C 18 Room Air 11/25/24 19:05 18 11/25/24 19:05 37.0 C 18 11/25/24 19:05 96 11/25/24 19:05 75 11/25/24 19:00 98 11/25/24 19:00 79 11/25/24 18:55 98 11/25/24 18:55 75 11/25/24 18:50 98 11/25/24 18:50 76 11/25/24 18:45 98 11/25/24 18:45 74 11/25/24 18:43 75 11/25/24 18:43 115/73 11/25/24 18:40 97 11/25/24 18:40 73 11/25/24 18:35 97 11/25/24 18:35 77 11/25/24 18:30 98 11/25/24 18:30 76 11/25/24 18:28 77 11/25/24 18:28 117/70 11/25/24 18:25 36.9 C 11/25/24 18:25 99 11/25/24 18:25 78 11/25/24 18:20 99 11/25/24 18:20 74 11/25/24 18:15 98 11/25/24 18:15 81 11/25/24 18:12 81 11/25/24 18:12 114/64 11/25/24 18:10 97 11/25/24 18:10 81 11/25/24 18:05 98 11/25/24 18:05 79 11/25/24 18:00 99 11/25/24 18:00 86 11/25/24 17:57 71 11/25/24 17:57 107/68 11/25/24 17:55 98 11/25/24 17:55 79 11/25/24 17:50 99 11/25/24 17:50 79 11/25/24 17:45 98 11/25/24 17:45 75 11/25/24 17:42 74 11/25/24 17:42 108/74 11/25/24 17:40 99 11/25/24 17:40 78 11/25/24 17:35 98 11/25/24 17:35 76 11/25/24 17:30 18 11/25/24 17:30 36.9 C 18 11/25/24 17:30 99 11/25/24 17:30 79 11/25/24 17:29 77 11/25/24 17:29 116/85 11/25/24 17:25 99 11/25/24 17:25 81 11/25/24 17:20 96 11/25/24 17:20 87 11/25/24 17:15 98 11/25/24 17:15 73 11/25/24 17:12 85 11/25/24 17:12 104/61 11/25/24 17:10 99 11/25/24 17:10 79 11/25/24 17:05 99 11/25/24 17:05 80 11/25/24 17:00 98 11/25/24 17:00 83 11/25/24 16:57 75 11/25/24 16:57 110/64 11/25/24 16:55 98 11/25/24 16:55 77 11/25/24 16:50 98 11/25/24 16:50 82 11/25/24 16:45 98 11/25/24 16:45 99 H 11/25/24 16:41 82 11/25/24 16:41 110/66 11/25/24 16:40 98 11/25/24 16:40 82 11/25/24 16:38 81 11/25/24 16:38 109/62 11/25/24 16:36 84 11/25/24 16:36 115/67 11/25/24 16:35 98 11/25/24 16:35 93 H 11/25/24 16:32 84 11/25/24 16:32 107/57 L 11/25/24 16:30 98 11/25/24 16:30 85 11/25/24 16:29 82 11/25/24 16:29 118/57 L 11/25/24 16:26 71 11/25/24 16:26 117/78 11/25/24 16:25 98 11/25/24 16:25 70 11/25/24 16:20 99 11/25/24 16:20 75 11/25/24 16:15 100 11/25/24 16:15 79 11/25/24 16:10 99 11/25/24 16:10 79 11/25/24 16:04 18 11/25/24 16:04 37.2 C 18 11/25/24 15:09 80 11/25/24 15:09 125/79 O2 Del Method 11/26/24 02:12 11/26/24 02:12 11/26/24 02:12 11/26/24 02:06 11/26/24 02:01 11/26/24 01:57 11/26/24 01:56 11/26/24 01:51 11/26/24 01:47 11/26/24 01:46 11/26/24 01:43 11/26/24 01:41 11/26/24 01:36 11/26/24 01:35 11/26/24 01:30 11/26/24 01:28 11/26/24 01:25 11/26/24 01:20 11/26/24 01:15 11/26/24 01:13 11/26/24 01:10 11/26/24 01:05 11/26/24 01:00 11/26/24 00:58 11/26/24 00:55 11/26/24 00:50 11/26/24 00:45 11/26/24 00:43 11/26/24 00:40 11/26/24 00:38 11/26/24 00:35 11/26/24 00:33 11/26/24 00:30 11/26/24 00:28 11/26/24 00:27 11/26/24 00:25 11/26/24 00:20 11/26/24 00:15 11/26/24 00:14 11/26/24 00:12 11/26/24 00:10 11/26/24 00:05 11/26/24 00:00 11/25/24 23:58 11/25/24 23:58 11/25/24 23:55 11/25/24 23:55 11/25/24 23:51 11/25/24 23:50 11/25/24 23:50 11/25/24 23:45 11/25/24 23:45 11/25/24 23:42 11/25/24 23:42 11/25/24 23:40 11/25/24 23:40 11/25/24 23:39 11/25/24 23:39 11/25/24 23:35 11/25/24 23:35 11/25/24 23:33 11/25/24 23:33 11/25/24 23:30 11/25/24 23:30 11/25/24 23:27 11/25/24 23:27 11/25/24 23:25 11/25/24 23:25 11/25/24 23:20 11/25/24 23:20 11/25/24 23:15 11/25/24 23:15 11/25/24 23:12 11/25/24 23:12 11/25/24 23:10 11/25/24 23:10 11/25/24 23:05 11/25/24 23:05 11/25/24 23:00 11/25/24 23:00 11/25/24 23:00 11/25/24 23:00 11/25/24 22:58 11/25/24 22:58 11/25/24 22:57 11/25/24 22:57 11/25/24 22:55 11/25/24 22:55 11/25/24 22:50 11/25/24 22:50 11/25/24 22:45 11/25/24 22:45 11/25/24 22:43 11/25/24 22:43 11/25/24 22:43 11/25/24 22:43 11/25/24 22:40 11/25/24 22:40 11/25/24 22:35 11/25/24 22:35 11/25/24 22:30 11/25/24 22:30 11/25/24 22:27 11/25/24 22:27 11/25/24 22:25 11/25/24 22:25 11/25/24 22:20 11/25/24 22:20 11/25/24 22:15 11/25/24 22:15 11/25/24 22:12 11/25/24 22:12 11/25/24 22:10 11/25/24 22:10 11/25/24 22:05 11/25/24 22:05 11/25/24 22:00 11/25/24 22:00 11/25/24 22:00 11/25/24 22:00 11/25/24 21:57 11/25/24 21:57 11/25/24 21:55 11/25/24 21:55 11/25/24 21:50 11/25/24 21:50 11/25/24 21:45 11/25/24 21:45 11/25/24 21:42 11/25/24 21:42 11/25/24 21:40 11/25/24 21:40 11/25/24 21:38 11/25/24 21:38 11/25/24 21:35 11/25/24 21:35 11/25/24 21:30 11/25/24 21:30 11/25/24 21:27 11/25/24 21:27 11/25/24 21:25 11/25/24 21:25 11/25/24 21:20 11/25/24 21:20 11/25/24 21:15 11/25/24 21:15 11/25/24 21:15 11/25/24 21:12 11/25/24 21:12 11/25/24 21:10 11/25/24 21:10 11/25/24 21:05 11/25/24 21:05 11/25/24 21:00 11/25/24 21:00 11/25/24 21:00 11/25/24 21:00 11/25/24 20:57 11/25/24 20:57 11/25/24 20:55 11/25/24 20:55 11/25/24 20:50 11/25/24 20:50 11/25/24 20:45 11/25/24 20:45 11/25/24 20:42 11/25/24 20:42 11/25/24 20:40 11/25/24 20:40 11/25/24 20:35 11/25/24 20:35 11/25/24 20:30 11/25/24 20:30 11/25/24 20:27 11/25/24 20:27 11/25/24 20:25 11/25/24 20:25 11/25/24 20:20 11/25/24 20:20 11/25/24 20:15 11/25/24 20:15 11/25/24 20:12 11/25/24 20:12 11/25/24 20:10 11/25/24 20:10 11/25/24 20:05 11/25/24 20:05 11/25/24 20:00 11/25/24 20:00 11/25/24 20:00 11/25/24 20:00 11/25/24 19:55 11/25/24 19:55 11/25/24 19:50 11/25/24 19:50 11/25/24 19:45 11/25/24 19:45 11/25/24 19:43 11/25/24 19:43 11/25/24 19:40 11/25/24 19:40 11/25/24 19:35 11/25/24 19:35 11/25/24 19:30 11/25/24 19:30 11/25/24 19:27 11/25/24 19:27 11/25/24 19:25 11/25/24 19:25 11/25/24 19:20 11/25/24 19:20 11/25/24 19:15 11/25/24 19:15 11/25/24 19:13 Room Air 11/25/24 19:12 11/25/24 19:12 11/25/24 19:10 11/25/24 19:10 11/25/24 19:05 11/25/24 19:05 11/25/24 19:05 11/25/24 19:05 11/25/24 19:05 11/25/24 19:05 11/25/24 19:00 11/25/24 19:00 11/25/24 18:55 11/25/24 18:55 11/25/24 18:50 11/25/24 18:50 11/25/24 18:45 11/25/24 18:45 11/25/24 18:43 11/25/24 18:43 11/25/24 18:40 11/25/24 18:40 11/25/24 18:35 11/25/24 18:35 11/25/24 18:30 11/25/24 18:30 11/25/24 18:28 11/25/24 18:28 11/25/24 18:25 11/25/24 18:25 11/25/24 18:25 11/25/24 18:20 11/25/24 18:20 11/25/24 18:15 11/25/24 18:15 11/25/24 18:12 11/25/24 18:12 11/25/24 18:10 11/25/24 18:10 11/25/24 18:05 11/25/24 18:05 11/25/24 18:00 11/25/24 18:00 11/25/24 17:57 11/25/24 17:57 11/25/24 17:55 11/25/24 17:55 11/25/24 17:50 11/25/24 17:50 11/25/24 17:45 11/25/24 17:45 11/25/24 17:42 11/25/24 17:42 11/25/24 17:40 11/25/24 17:40 11/25/24 17:35 11/25/24 17:35 11/25/24 17:30 11/25/24 17:30 11/25/24 17:30 11/25/24 17:30 11/25/24 17:29 11/25/24 17:29 11/25/24 17:25 11/25/24 17:25 11/25/24 17:20 11/25/24 17:20 11/25/24 17:15 11/25/24 17:15 11/25/24 17:12 11/25/24 17:12 11/25/24 17:10 11/25/24 17:10 11/25/24 17:05 11/25/24 17:05 11/25/24 17:00 11/25/24 17:00 11/25/24 16:57 11/25/24 16:57 11/25/24 16:55 11/25/24 16:55 11/25/24 16:50 11/25/24 16:50 11/25/24 16:45 11/25/24 16:45 11/25/24 16:41 11/25/24 16:41 11/25/24 16:40 11/25/24 16:40 11/25/24 16:38 11/25/24 16:38 11/25/24 16:36 11/25/24 16:36 11/25/24 16:35 11/25/24 16:35 11/25/24 16:32 11/25/24 16:32 11/25/24 16:30 11/25/24 16:30 11/25/24 16:29 11/25/24 16:29 11/25/24 16:26 11/25/24 16:26 11/25/24 16:25 11/25/24 16:25 11/25/24 16:20 11/25/24 16:20 11/25/24 16:15 11/25/24 16:15 11/25/24 16:10 11/25/24 16:10 11/25/24 16:04 11/25/24 16:04 11/25/24 15:09 11/25/24 15:09 Coding Level of Care Code None Diagnoses Encounter for induction of labor Z34.90
--- NOTE | 2024-11-26 03:16 | Delivery Summary ---
Vaginal Delivery Summary Date of Service November 26, 2024 Vaginal Delivery Summary Pre-operative Diagnosis: at 40 3/7 unfavorable cervix Post-operative Diagnosis: same Procedure: roberts for cervical ripening pitocin iol epidural arom iupc second degree laceration and repair QBL: 510cc Anesthesia: epidural Procedure: The patient presented for postdates iol. Arrived this am with roberts still in place and pitocin started. Roberts eventually removed and 4cm. Got epidural and then arom for clear fluid. The patient required an IUPC for monitoring. she eventually became c/c/+2. The patient pushed for about 1.5hrs to deliver a viable female infant in anaya position. The anterior shoulder was immediately delivered and then the rest of the infant was then delivered without difficulty. The baby was vigorous. The nose and mouth were bulb suctioned and the infant was placed in the maternal abdomen for drying and attention. Cord was clamped and cut at one minute of life.. Cord blood and segment obtained. Placenta delivered spontaneous, intact with a three vessel cord. Cervix/sulci/rectum were intact. A second degree perineal laceration was repaired in the normal standard fashion. Hemostasis obtained with dilute pitocin and fundal massage and rectal cytotec. Apgars were pending at the time of this note. Mother and baby doing well at the end of the delivery. [facility] Vaginal Delivery Charge Delivery Type Details:
[2024-11-26] MEDS ORDERED: OXYTOCIN 30 UNITS/NSS 30 UNITS/500 ML BAG IV PRN (03:17)
[2024-11-26] MEDS ORDERED: HYDROCORTISONE ACETATE 25 MG SUPP PR PRN (03:17)
[2024-11-26] MEDS: SODIUM CHLORIDE 0.9% PF INJ 10 ML VIAL ONE (03:25)
[2024-11-26] MEDS: DIPHTHER/TETAN/PERTUS Vaccine (Tdap, Adol/Adult) 0.5mL IM ONE (03:37)
[2024-11-26] MEDS ORDERED: Nursing to Pharmacy Communication SCH (04:15)
[2024-11-26] MEDS: ACETAMINOPHEN 325 MG TAB PO PRN (04:17)
[2024-11-26] MEDS: BENZOCAINE 20% SPRY 85 APPLN/85 GM CAN EXT PRN (04:17)
[2024-11-26] MEDS: LEVOTHYROXINE SODIUM 50 MCG TABLET PO SCH (05:28)
[2024-11-26] MEDS ORDERED: LEVOTHYROXINE SODIUM 50 MCG TABLET PO SCH (06:30)
[2024-11-26] MEDS: DOCUSATE SODIUM 100 MG CAP PO SCH (07:51)
[2024-11-26] MEDS: IBUPROFEN 600 MG TAB PO PRN (07:51)
[2024-11-26] MEDS: PRENATAL VITAMIN 1 TAB PO SCH (07:52)
--- NOTE | 2024-11-27 07:11 | Obstetrical Progress Note ---
Date of Service November 27, 2024 Assessment & Plan (1) examination following vaginal delivery: (2) SHARLENE positive: (3) Hyperthyroidism affecting : (4) Supervision of elderly primigravida: Plan 34 y/o post- day 1 s/p . was complicated by hyperthyroidism and SHARLENE (+). Feels well today. Vital signs stable Continue post- care Encourage ambulation and Pain controlled with ibuprofen Hgb stable Discharge home today, follow up with Dr. Joya in 6 weeks. Admission and Anticipated Discharge Date Admission Date: November 25, 2024 Supervising Physician Co-Signing Physician Notes Patient seen with resident and agree with the above findings and plan. Stable for discharge as preferred Subjective Sharlene Zepeda is a 34 y/o post- day 1 s/p . was complicated by hyperthyroidism and SHARLENE(+). Ambulation: ambulating normally Voiding: no voiding problems Passing Gas:: Yes Diet Tolerance:: regular diet Lochia:: Small Feeding Type:: breast Current Pain Level: minimal Resting comfortably this AM in NAD. Denies MARY, CP, SOB, N/V/D, LE pain/swelling. Physical Exam Physical Exam: General: patient resting comfortably, NAD, non-toxic in appearance, AA&O x 4, answers questions appropriately. Skin: warm, dry, intact HEENT: NC/AT, anicteric sclera, conjunctiva without injection, moist mucus membranes. Heart: +S1/S2, regular, no m/r/g Lungs: equal air entry bilaterally, no rales/rhonchi/wheezes Abd: +BS, soft, NT/ND, uterine fundus firm at umbilicus Ext: warm, no clubbing/cyanosis or edema, Eileen's neg. Neuro: nonfocal, patient AA&O x 4, speech intact, no facial droop, moving all extremities on command. Results & Data Vital Signs (Past 12 Hours) Vital Signs Temp Pulse Resp BP Pulse Ox O2 Del Method 11/27/24 00:00 36.5 C 73 18 102/66 98 Room Air 11/26/24 19:37 36.8 C 83 18 113/77 97 Room Air (3) Hyperthyroidism affecting Trimester: second trimester Qualified Code(s): O99.282 - Endocrine, nutritional and metabolic diseases complicating , second trimester; E05.90 - Thyrotoxicosis, unspecified without thyrotoxic crisis or storm
[2024-11-27 09:13] LABS: Hematocrit (blood only) 36.4 % (37.0-47.0); Hemoglobin 12.9 g/dl (12.0-16.0)
[2024-11-27 23:12] VITALS: RESP 18
[2024-11-28 07:36] VITALS: BP 114/75; PULSE 65; TEMP 98.2; O2SAT 97
--- NOTE | 2024-11-28 07:55 | Obstetrical Progress Note ---
Date of Service November 28, 2024 Assessment & Plan (1) examination following vaginal delivery: Plan 34 yo PP2 from , doing well -Meeting all pp milestones -AB+/rubella immune -f/u 6 weeks for appt, stable for dc vs nesting pending baby Subjective Ambulation: ambulating normally Voiding: no voiding problems Passing Gas:: Yes Diet Tolerance:: regular diet Lochia:: Small Pain well managed with medication Review of Systems Denies fevers, chills, n/v, MARY, CP, SOB Physical Exam Constitutional WD/WN, vitals as above no acute distress Respiratory normal respiratory effort, lungs clear to auscultation Cardiovascular RRR, no murmur, no edema Gastrointestinal (Abdomen) Percussion/Palpation: abdomen soft; abdomen nontender fundus firm at umbilicus and NT Musculoskeletal BLE symmetric, nonerythematous, nontender Results & Data Vital Signs (Past 12 Hours) Vital Signs Temp Pulse Resp BP Pulse Ox O2 Del Method 11/28/24 07:18 98.2 F 65 18 114/75 97 Room Air 11/27/24 23:12 97.9 F 82 18 105/70 99 Room Air
== END 2024-11-28 12:45 | disposition home or self-care (01) | DRG 807 ==
LOC: 4S1 07:52 → 4E2 11-26 05:34